=== PATIENT | male | born 1995 | race Two or more races ===

== ENCOUNTER 2021-05-23 23:45 | Emergency (ER) | payer MEDICAID ==
[~2021-05-23] VITALS: Ht 193 cm; Wt 93.0 kg
[2021-05-24] MEDS ORDERED: FAMOTIDINE 20MG/2ML VIAL IV STA (00:26)
[2021-05-24] MEDS ORDERED: ONDANSETRON HCL 4MG/2ML INJ IV STA (00:26)
[2021-05-24] MEDS ORDERED: SODIUM CHLORIDE 0.9% 1,000 ML IV ONE (00:30)
[2021-05-24 00:43] LABS: BASOPHILS % 0.4 % (0.0-2.0); EOSINOPHILS % 0.3 % (0.0-5.0); HEMATOCRIT. 45.1 % (42.0-52.0); HEMOGLOBIN. 15.2 g/dL (14.0-18.0); LYMPHOCYTES % 23.4 % (20.0-50.0); MEAN CORPUSCULAR HEMOGLOBIN 29.3 pg (28.0-32.0); MEAN PLATELET VOLUME 8.8 fl (7.4-10.4); MONOCYTES % 5.1 % (2.0-8.0); NEUTROPHILS % 70.8 % (40.0-76.0); PLATELET 214 x1000/uL (130-400); RED BLOOD CELL COUNT 5.18 mill/uL (4.7-6.1); RED CELL DISTRIBUTION WIDTH 13.2 % (11.6-14.6)
[2021-05-24 00:46] LABS: CHLORIDE 109 mEq/L (98-107)
[2021-05-24 00:50] LABS: ETHANOL BLOOD 125 mg/dL
[2021-05-24] MEDS ORDERED: T3 PO (03:02)
[2021-05-24 03:45] VITALS: BP 110/85
== END 2021-05-24 04:27 | disposition home or self-care (01) ==
LOC: ER 23:45
DX: R11.2 Nausea with vomiting, unspecified (principal); F10.10 Alcohol abuse, uncomplicated; R10.9 Unspecified abdominal pain; F12.10 Cannabis abuse, uncomplicated
CPT/HCPCS: 36415; 80053; 80320; 83690; 85025; 96361; 96374; 96375; 99284; J2405; J3490; J7030; G0480